=== PATIENT | female | born 1930 | race Caucasian/White ===

== ENCOUNTER 2019-09-27 22:54 | Emergency (ER) | payer BC, MEDICARE ==
[2019-09-27 23:04] VITALS: BP 217/87; PULSE 85; RESP 18; TEMP 97.3
[2019-09-27] MEDS ORDERED: DIPH,PERTUS(ACELL)TETVAC-LF 0.5 ML VIAL IM ONE (23:12)
[2019-09-27] MEDS ORDERED: LIDOCAINE 1% INJ 10MG/ML (20 ML MDV) SQ ONE (23:13)
--- NOTE | 2019-09-27 23:33 | CT ---
EXAMINATION TYPE: CT brain cspine wo con DATE OF EXAM: 09/27/2019 COMPARISON: None HISTORY: Fall, Laceration Neck pain. Headache. CT DLP: 1209.80 mGycm Automated exposure control for dose reduction was used. There is mild cerebral cortical atrophy. There is no mass effect nor midline shift. There is no sign of intracranial hemorrhage. There is mild hypodensity around the lateral ventricles. There is some pr ominence of the ventricles. Calvarium is intact. Cervical vertebra have normal alignment. There is degenerative disc space narrowing at C5-6 and C6-7 with spurring of the endplates. There is multilevel hypertrophic facet arthropathy. There is no compr ession fracture. Prevertebral soft tissues appear normal. IMPRESSION: Spondylotic changes in the lower cervical spine. No fracture. Cerebral atrophy. Mild hydrocephalus. No acute intracranial abnormality.
--- NOTE | 2019-09-27 23:56 | XR ---
EXAMINATION TYPE: XR hand complete RT DATE OF EXAM: 09/27/2019 COMPARISON: NONE HISTORY: Laceration TECHNIQUE: 3 views FINDINGS: There is some narrowing and spurring at the DIP joints of the fingers and the thumb. I see no fracture nor dislocation. There is no sign of a foreign body. There is deformity of the distal rad ius consistent with old healed fracture. Metacarpals are intact. IMPRESSION: Osteoarthritic changes. No fracture seen. No sign of a foreign body.
--- NOTE | 2019-09-28 00:17 | ED ---
Fall HPI - General Chief Complaint: Fall Stated Complaint: Fall Time Seen by Provider: 09/27/19 23:06 Source: patient Mode of arrival: ambulatory - History of Present Illness Initial Comments: 89-year-old female presenting today for chief complaint of fall with right hand pain. Patient states that she fell at [facility] just prior to arrival after tripping over and area of uneven rug. She states that she was walking she tripped over an area of multiple rug she states she fell forward striking the right side of her forehead. Patient states she also bent her hand back and had hand pain and her rings cut her fingers. Patient had lacerations to digits 4 and 5 and was unable to get the ring off her 4th finger. Patient denies LOC, denies use of anticoagulation therapy, denies neck pain. Admits to slight headache, denies nausea, visual changes, speech changes, weakness of the UE and LE. Patient denies any wrist, elbow or shoulder pain, denies injury to the LE. States she was able to ambulate right after the fall. Patient denies laceration of the head. Patient thought she might need suture and that is the only reason she let them take her to the ER. Otherwise she states she doesnt feel like she needs to be here. Upon arrival patient is very spunk and appears well. No acute distress. NOted hematoma right side of forehead, Pt BP elevated. Denies CP, SOB, dizziness, denies syncope - Related Data Previous Rx's Medication Instructions Recorded Cephalexin [Keflex] 500 mg PO Q8HR 7 Days #21 cap 09/28/19 Allergies Allergy/AdvReac Type Severity Reaction Status Date / Time Sulfa (Sulfonamide Allergy Rash/Hives Verified 09/27/19 23:05 Antibiotics) Review of Systems ROS Statement: Those systems with pertinent positive or pertinent negative responses have been documented in the HPI. ROS Other: All systems not noted in ROS Statement are negative. Past Medical History Past Medical History: No Reported History History of Any Multi-Drug Resistant Organisms: None Reported Past Surgical History: Appendectomy, Breast Surgery, Cholecystectomy, Hysterectomy Past Psychological History: No Psychological Hx Reported Smoking Status: Former smoker Past Alcohol Use History: Occasional Past Drug Use History: None Reported General Exam - General Exam Comments Initial Comments: General: The patient is awake and alert, in no distress, and does not appear acutely ill. Eye: +3 mm pupils are equal, round and reactive to light, extra-ocular movements are intact. No nystagmus. There is normal conjunctiva bilaterally. No signs of icterus. Ears, nose, mouth and throat: There are moist mucous membranes and no oral lesions. No raccoon no battlle sign. TM wnl. Neck: The neck is supple, there is no tenderness or JVD. No pain midline or parabertebral to palpation of the Cardiovascular: There is a regular rate and rhythm. No murmur, rub or gallop is appreciated. Respiratory: Lungs are clear to auscultation, respirations are non-labored, breath sounds are equal. No wheezes, stridor, rales, or rhonchi. Gastrointestinal: Soft, non-distended, non-tender abdomen without masses or organomegaly noted. There is no rebound or guarding prese Musculoskeletal: Normal ROM at the wrists, elbows, shoulders b/l, no tenderness. Some tenderness over the dorsum of the right hand. Full ROM at mcp, dip and pip of all 5 digits of the hands b/l Strength 5/5. Sensation intact. radial pulses equal bilaterally 2+. No anatomical snuff box tenderness. Neurological: A&O x 3. CN II-XII intact, There are no obvious motor or sensory deficits. Coordination appears grossly intact. Speech is normal. Skin: Skin is warm and dry and no rashes. Lrge right sided forehead hematoma, does not appears to be expanding rapidly. NO laceration. 1.5cm laceration to the dorsal aspect of the 4th digit just distal to the MCP joint. There i a 3/4 cm laceration to the 5th digit just distal to mcp joint. Tendonon digit 4 (extensor) is exposed but the sheath nor tendon appears ruptured, no limitations in ROM of the 4th or 5th digit, no decreased strength, no forced flexed positioning. Psychiatric: Cooperative, appropriate mood & affect, normal judgment. Limitations: no limitations Course Vital Signs 09/27/19 22:57 Temperature 97.3 F L Pulse Rate 85 Respiratory 18 Rate Blood Pressure 217/87 O2 Sat by Pulse 98 Oximetry Procedures - Laceration Laceration #1 Consent Obtained: verbal consent Indication: laceration Site: other (4th digit right hand dorsal aspedct just distal to MCP joint) Size (cm): 0 (1.5cm) Description: linear, clean Anesthetic Used: lidocaine 1% Anesthesia Technique: local infiltration Amount (mls): 2 Pre-repair: wound explored, irrigated extensively, deep structures intact Type of Sutures: nylon Size of Sutures: 5-0 Number of Sutures: 4 Technique: simple, interrupted Patient Tolerated Procedure: well, no complications Laceration #2 Consent Obtained: verbal consent Indication: laceration Site: other (digit 5 dorsal aspedct just distal to MCP) Size (cm): 0 (3/4cm) Description: linear Anesthesia Technique: local infiltration Amount (mls): 1 Pre-repair: wound explored, irrigated extensively, deep structures intact Type of Sutures: nylon Size of Sutures: 5-0 Number of Sutures: 2 Technique: simple, interrupted Patient Tolerated Procedure: well, no complications Medical Decision Making - Medical Decision Making 89-year-old feel presented for fall hand pain. Lacerations repaired. No evidence of open fractures. There is tender exposure of digit #4 there is no evidence of tendon injury on physical examination that supports rupture. Area extensively irrigated and cleansed and repaired. I discussed the importance of primary care follow-up and monitoring for limitation to range of motion or strength. Patient also has a right sided forehead hematoma. No laceration or abrasion. No LOC no yeast anticoagulation therapy. CT brain without contrast revealed no acute abnormalities intracranially or other osseous of the cervical spine. Patient has no focal neurological deficits no midline tenderness to patient the cervical spine. No weakness of the upper extremities or sensation deficits. At this time I feel patient is stable for discharge with outpatient primary care follow-up. Patient is agreeable to and prefers discharge at this time patient is discharged appearing well Disposition Clinical Impression: Fall, Traumatic hematoma of forehead, Finger laceration Disposition: HOME SELF-CARE Condition: Good Instructions (If sedation given, give patient instructions): Fall Prevention for Older Adults (ED), Finger Laceration (ED), Hematoma (ED) Additional Instructions: Please use medication as discussed. Please follow-up with family doctor in the next 2 days. If any limitations in ROM or strength of fingers, please return to ER and follow-up with orthopedic surgery. Please return to emergency room if the symptoms increase or worsen or for any other concerns. Prescriptions: Cephalexin [Keflex] 500 mg PO Q8HR 7 Days #21 cap Is patient prescribed a controlled substance at d/c from ED?: No Referrals: Marco Dillon MD [Primary Care Provider] - 1-2 days David Will MD [Medical Doctor] - 1-2 days Time of Disposition: 00:15
== END 2019-09-28 00:30 | disposition home or self-care (01) ==
LOC: EC 22:54
DX: S61.214A Laceration without foreign body of right ring finger without damage to nail, initial encounter (principal); S61.216A Laceration without foreign body of right little finger without damage to nail, initial encounter; S00.83XA Contusion of other part of head, initial encounter; Z23 Encounter for immunization; Z88.2 Allergy status to sulfonamides; Z87.891 Personal history of nicotine dependence; W01.10XA Fall on same level from slipping, tripping and stumbling with subsequent striking against unspecified object, initial encounter; Y93.01 Activity, walking, marching and hiking
CPT/HCPCS: 73130; 72125; 70450; 90715; 99284; 90471; 12001; J2001